=== PATIENT | male | born 1950 | race Caucasian/White ===

== ENCOUNTER 2017-08-08 05:47 | Day surgery (SDC) | payer MEDICARE, OTHER ==
[2017-08-07 09:37] LABS: BASOPHILS # (AUTO) 0.1 X10'3 (0-0.2); EOSINOPHILS # (AUTO) 0.5 X10'3 (0-0.9); EOSINOPHILS % (AUTO) 6.2 % (0-6); HEMOGLOBIN 16.1 g/dl (14.0-17.9); LYMPHOCYTES # (AUTO) 2.5 X10'3 (1.1-4.8); LYMPHOCYTES % (AUTO) 30.2 % (21-51); MEAN CORPUSCULAR HEMOGLOBIN 31.8 PG (27.0-31.0); MEAN CORPUSCULAR HGB CONC 34.2 % (33.0-36.5); MEAN CORPUSCULAR VOLUME 92.8 FL (78-98); MEAN PLATELET VOLUME 8.1 FL (7.4-10.4); MONOCYTES # (AUTO) 0.5 X10'3 (0-0.9); MONOCYTES % (AUTO) 5.8 % (2-12); NEUTROPHILS # (AUTO) 4.8 X10'3 (1.8-7.7); NEUTROPHILS % (AUTO) 56.8 % (42-75); PLATELET COUNT 257 X10'3 (140-440); RED BLOOD COUNT 5.06 X10'6 (4.70-6.10); WHITE BLOOD COUNT 8.4 X10'3 (4.5-11.0)
[2017-08-07 09:58] LABS: ALANINE AMINOTRANSFERASE 17 U/L (12-78); ALBUMIN 3.3 G/DL (3.4-5.0); ALBUMIN/GLOBULIN RATIO 0.8 (1.1-1.5); ALKALINE PHOSPHATASE 70 IU/L (46-116); ANION GAP 10 (8-16); ASPARTATE AMINO TRANSFERASE 15 U/L (10-37); BILIRUBIN,TOTAL 0.5 MG/DL (0.1-1.0); BLOOD UREA NITROGEN 14 MG/DL (7-18); BUN/CREATININE RATIO 13.6 (5.4-32.0); CALCIUM 8.4 MG/DL (8.5-10.1); CHLORIDE 107 MMOL/L (99-107); CHOL/HDL RATIO 3.4 (0.00-4.99); CHOLESTEROL 129 MG/DL (0-200); CREATININE 1.03 MG/DL (0.60-1.10); GLUCOSE 110 MG/DL (70-104); HDL CHOLESTEROL 38 MG/DL (35-60); LDL CHOLESTEROL 78 MG/DL (50-100); POTASSIUM 4.2 MMOL/L (3.5-5.1); SODIUM 140 MMOL/L (135-145); TOTAL CARBON DIOXIDE 23.3 MMOL/L (24-32); TOTAL PROTEIN 7.3 G/DL (6.4-8.2); TRIGLYCERIDES 97 MG/DL (20-135); eGFR 72 ML/MIN
[2017-08-08] VITALS (34 sets, daily range): BP systolic 109–177; BP diastolic 64–97
[~2017-08-08] VITALS: Ht 165.1 cm; Wt 102.9 kg
[2017-08-08] MEDS ORDERED: LORazepam 0.5 MG tablet PO PRN (06:00)
[2017-08-08] MEDS ORDERED: diphenhydrAMINE 25mg capsule PO PRN (06:00)
[2017-08-08] MEDS ORDERED: ATOR40TA PO (06:05)
[2017-08-08] MEDS ORDERED: METO50TA7 PO (06:05)
[2017-08-08] MEDS ORDERED: AMLO5TAB2 PO (06:05)
[2017-08-08] MEDS ORDERED: PRAS10TA6 PO (06:05)
[2017-08-08] MEDS ORDERED: LISI40TA4 PO (06:05)
[2017-08-08] MEDS ORDERED: ASPI81TA52 PO (06:05)
[2017-08-08] MEDS: normal saline 1000ml 1,000 ML IV SCH ×2 (06:41→10:59)
[2017-08-08] MEDS ORDERED: midazolam 2 mg/2 ml injection ONE (07:43)
[2017-08-08] MEDS ORDERED: nitroGLYCERIN-Tridil 50MG/D5W 250 ML IV ONE (07:43)
[2017-08-08] MEDS ORDERED: LIDOcaine 1% w/EPI 1:100,000 30ml vial (MDV) ONE (07:44)
[2017-08-08] MEDS ORDERED: fentaNYL/PF 50MCG/1 ML 2ML syringe ONE (07:44)
[2017-08-08] MEDS ORDERED: iohexol 350 MG/ML 50ML vial IV ONE ×2 (07:44→09:08)
[2017-08-08] MEDS ORDERED: iohexol 350MG/ML 100ml bottle IV ONE ×2 (07:44→08:20)
[2017-08-08] MEDS ORDERED: heparin 1,000unit/ml 10ml vial 10 ML ONE (07:44)
[2017-08-08] MEDS ORDERED: tirofiban 5mg in NS 100mL 100 ML IV ONE (09:12)
[2017-08-08] MEDS ORDERED: ticagrelor 90mg tablet ONE (09:13)
[2017-08-08] MEDS ORDERED: magnesium hydroxide 30ml (MOM) UD suspension PO PRN (10:05)
[2017-08-08] MEDS ORDERED: HYDROcodone/acetaminophen 10/325mg tab PO PRN ×2 (10:05)
[2017-08-08] MEDS ORDERED: OXAZEpam 15mg capsule PO PRN (10:05)
[2017-08-08] MEDS ORDERED: acetaminophen 325mg tablet PO PRN (10:05)
[2017-08-08] MEDS ORDERED: cyclobenzaprine 10mg tablet PO PRN (10:05)
[2017-08-08] MEDS ORDERED: proCHLORperazine 10 MG/2 ml inj IV PRN (10:05)
[2017-08-08] MEDS: tirofiban 5mg in NS 100mL 100 ML IV SCH ×3 (10:59→21:53)
[2017-08-08] MEDS ORDERED: LIDOcaine 1.5% w/epinephrine 1:200,000 5ml ampul ONE (14:15)
[2017-08-08] MEDS: ticagrelor 90mg tablet PO SCH (17:38)
[2017-08-08] MEDS: docusate sod 100mg capsule PO SCH (20:15)
[2017-08-09 03:00] VITALS: BP 122/63
[2017-08-09] MEDS: tirofiban 5mg in NS 100mL 100 ML IV SCH (03:43)
[2017-08-09 05:13] LABS: BASOPHILS % (AUTO) 0.3 % (0-1); EOSINOPHILS # (AUTO) 0.4 X10'3 (0-0.9); EOSINOPHILS % (AUTO) 3.6 % (0-6); HEMATOCRIT 43.6 % (42.0-52.0); HEMOGLOBIN 14.9 g/dl (14.0-17.9); LYMPHOCYTES # (AUTO) 2.1 X10'3 (1.1-4.8); LYMPHOCYTES % (AUTO) 21.3 % (21-51); MEAN CORPUSCULAR HEMOGLOBIN 31.7 PG (27.0-31.0); MEAN PLATELET VOLUME 8.1 FL (7.4-10.4); MONOCYTES # (AUTO) 0.6 X10'3 (0-0.9); MONOCYTES % (AUTO) 5.7 % (2-12); NEUTROPHILS # (AUTO) 6.8 X10'3 (1.8-7.7); NEUTROPHILS % (AUTO) 69.1 % (42-75); PLATELET COUNT 242 X10'3 (140-440); RED BLOOD COUNT 4.69 X10'6 (4.70-6.10); WHITE BLOOD COUNT 9.9 X10'3 (4.5-11.0)
[2017-08-09 05:22] LABS: ALBUMIN 2.7 G/DL (3.4-5.0); ANION GAP 11 (8-16); BLOOD UREA NITROGEN 13 MG/DL (7-18); CALCIUM 8.3 MG/DL (8.5-10.1); CHLORIDE 108 MMOL/L (99-107); GLUCOSE 111 MG/DL (70-104); POTASSIUM 3.7 MMOL/L (3.5-5.1); SODIUM 141 MMOL/L (135-145); TOTAL CARBON DIOXIDE 21.6 MMOL/L (24-32); eGFR 75 ML/MIN
[2017-08-09 05:30] VITALS: BP 146/87
[2017-08-09] MEDS ORDERED: TICA90TA PO (06:38)
[2017-08-09] MEDS: docusate sod 100mg capsule PO SCH (07:49)
[2017-08-09] MEDS: ticagrelor 90mg tablet PO SCH (07:49)
[2017-08-09] MEDS ORDERED: atorvastatin 20mg tablet PO SCH (08:00)
[2017-08-09] MEDS ORDERED: aspirin 81mg tablet.DR PO SCH (08:00)
[2017-08-09] MEDS ORDERED: lisinopril 20mg tablet PO SCH (08:00)
[2017-08-09] MEDS ORDERED: amLODIPine 5mg tablet PO SCH (08:00)
[2017-08-09] MEDS ORDERED: metoprolol succinate 25mg (24-HOUR) SR. Tablet PO SCH (08:00)
== END 2017-08-09 11:24 | disposition home or self-care (01) ==
LOC: SSTAY O 05:47 → PCU 3S 17:17 → SSTAY O 08-09 11:24
PROVIDERS: ATTEND Internal Medicine Cardiovascular Disease
DX: I25.118 Atherosclerotic heart disease of native coronary artery with other forms of angina pectoris (principal); I10 Essential (primary) hypertension; E78.5 Hyperlipidemia, unspecified; I25.2 Old myocardial infarction; K21.9 Gastro-esophageal reflux disease without esophagitis; Z95.5 Presence of coronary angioplasty implant and graft; Z86.74 Personal history of sudden cardiac arrest; Z87.891 Personal history of nicotine dependence; Z72.89 Other problems related to lifestyle; Z79.82 Long term (current) use of aspirin; Z79.899 Other long term (current) drug therapy; Z98.890 Other specified postprocedural states
CPT/HCPCS: 36415; 80048; 80053; 80061; 85025; 85347; 92920; 93005; 93458; 99152; 99153; A6257; A6449; C1725; C1760; C1769; J1644; J2250; J3010; J3246; J3490; J7030; Q0163; Q9967; A4620

== ENCOUNTER 2018-05-05 03:04 | Inpatient (IN) | payer MEDICARE, OTHER | END 2018-05-07 15:05 | disposition home or self-care (01) | LOC: ER 03:04 → ED HOLD 06:24 → ICU 2S 08:51 → PCU 3S 05-06 19:53 | PROC: 02703ZZ Dilation of Coronary Artery, One Artery, Percutaneous Approach (ICD-10-PCS; principal; ~2018-05-05) | PROC: 4A023N7 Measurement of Cardiac Sampling and Pressure, Left Heart, Percutaneous Approach (ICD-10-PCS; ~2018-05-05) | PROC: B215YZZ Fluoroscopy of Left Heart using Other Contrast (ICD-10-PCS; ~2018-05-05) | PROC: B211YZZ Fluoroscopy of Multiple Coronary Arteries using Other Contrast (ICD-10-PCS; ~2018-05-05) | PROC: B218YZZ Fluoroscopy of Left Internal Mammary Bypass Graft using Other Contrast (ICD-10-PCS; ~2018-05-05) | DX: I21.4 Non-ST elevation (NSTEMI) myocardial infarction (principal); I50.21 Acute systolic (congestive) heart failure; I47.2 Ventricular tachycardia; J06.9 Acute upper respiratory infection, unspecified; I25.10 Atherosclerotic heart disease of native coronary artery without angina pectoris ==

== ENCOUNTER 2019-07-09 07:23 | Emergency (ER) | payer MEDICARE, OTHER ==
[~2019-07-09] VITALS: Ht 167.6 cm; Wt 104.5 kg
[~2019-07-09 07:23] MED LIST: AMLO5TAB9 PO; ASPI81TA52 PO; ATOR40TA PO; LISI40TA4 PO; METO50TA7 PO; NITR0.4T51 SL; TICA90TA PO
[2019-07-09 08:52] VITALS: BP 148/77
== END 2019-07-09 08:54 | disposition home or self-care (01) ==
LOC: ER 07:23
DX: S61.012A Laceration without foreign body of left thumb without damage to nail, initial encounter (principal); I25.10 Atherosclerotic heart disease of native coronary artery without angina pectoris; I25.2 Old myocardial infarction; Z98.61 Coronary angioplasty status; Z79.82 Long term (current) use of aspirin; Z79.899 Other long term (current) drug therapy; W26.0XXA Contact with knife, initial encounter; Y93.89 Activity, other specified; Y92.89 Other specified places as the place of occurrence of the external cause; Y99.8 Other external cause status
CPT/HCPCS: 12001; 29130; 99282; 99283

== ENCOUNTER 2020-08-18 06:03 | Day surgery (SDC) | payer MEDICARE, OTHER ==
[2020-08-17 11:12] LABS: BASOPHILS # (AUTO) 0.1 X10'3 (0-0.2); BASOPHILS % (AUTO) 1.1 % (0-1); EOSINOPHILS # (AUTO) 0.3 X10'3 (0-0.9); EOSINOPHILS % (AUTO) 2.8 % (0-6); HEMATOCRIT 45.3 % (42.0-52.0); HEMOGLOBIN 15.3 g/dl (14.0-17.9); LYMPHOCYTES # (AUTO) 2.4 X10'3 (1.1-4.8); LYMPHOCYTES % (AUTO) 23.9 % (21-51); MEAN CORPUSCULAR HEMOGLOBIN 31.9 PG (27.0-31.0); MEAN CORPUSCULAR HGB CONC 33.7 g/dL (33.0-36.5); MEAN CORPUSCULAR VOLUME 94.5 FL (78-98); MEAN PLATELET VOLUME 7.8 FL (7.4-10.4); MONOCYTES # (AUTO) 0.6 X10'3 (0-0.9); MONOCYTES % (AUTO) 6.2 % (2-12); NEUTROPHILS # (AUTO) 6.7 X10'3 (1.8-7.7); PLATELET COUNT 251 X10'3 (140-440); RED CELL DISTRIBUTION WIDTH 13.5 % (11.5-14.5); WHITE BLOOD COUNT 10.1 X10'3 (4.5-11.0)
[2020-08-17 11:13] LABS: ALBUMIN 3.3 G/DL (3.4-5.0); ANION GAP 10 (8-16); BLOOD UREA NITROGEN 16 MG/DL (7-18); BUN/CREATININE RATIO 16.8 (5.4-32.0); CALCIUM 8.2 MG/DL (8.5-10.1); CHLORIDE 109 MMOL/L (99-107); CREATININE 0.95 MG/DL (0.60-1.10); GLUCOSE 103 MG/DL (70-104); POTASSIUM 4.1 MMOL/L (3.5-5.1); SODIUM 141 MMOL/L (135-145); TOTAL CARBON DIOXIDE 21.9 MMOL/L (24-32); eGFR 78 ML/MIN
[2020-08-18] VITALS (15 sets, daily range): BP systolic 129–162; BP diastolic 64–83
[~2020-08-18] VITALS: Ht 160 cm; Wt 108.5 kg
[~2020-08-18 06:03] MED LIST changes: +AMLO-315 PO; -AMLO5TAB9 PO; +LISI40TA13 PO; -LISI40TA4 PO
[2020-08-18] MEDS ORDERED: diphenhydrAMINE 25mg capsule PO PRN (06:20)
[2020-08-18] MEDS ORDERED: LORazepam 0.5 MG tablet PO PRN (06:20)
[2020-08-18] MEDS ORDERED: LIDOcaine/PRILOcaine 5gm cream TP ONE (06:20)
[2020-08-18] MEDS ORDERED: normal saline 1,000 ML IV SCH (06:20)
[2020-08-18] MEDS ORDERED: TICA60TA PO (06:27)
[2020-08-18] MEDS ORDERED: midazolam 1 mg/ML 2ml injection ONE (07:29)
[2020-08-18] MEDS ORDERED: verapamil 2.5 mg/ml inj IV ONE (07:29)
[2020-08-18] MEDS ORDERED: fentaNYL/PF 50MCG/1 ML 2ML syringe ONE (07:29)
[2020-08-18] MEDS ORDERED: LIDOcaine 1% (10mg/ml)w/preservative injection 20ml MDV ONE (07:29)
[2020-08-18] MEDS ORDERED: heparin 1,000unit/ml 10ml vial 10 ML ONE (07:30)
[2020-08-18] MEDS ORDERED: iohexol 350 MG/ML 50ML vial IV ONE (07:30)
[2020-08-18] MEDS ORDERED: iohexol 350MG/ML 100ml bottle IV ONE ×3 (07:30→09:40)
[2020-08-18] MEDS ORDERED: nitroGLYCERIN-Tridil 50MG/D5W 250 ML IV ONE (07:30)
[2020-08-18 08:41] LABS: ISTAT Hct ART 44 %PCV (42-52); ISTAT O2 SATURATION ARTERIAL 95 % (95-98); ISTAT SOURCE ART
[2020-08-18 08:50] LABS: ISTAT Hct MIX 44 %PCV (42-52); ISTAT O2 SATURATION MIX VENOUS 80 % (60-80); ISTAT SOURCE VEN
[2020-08-18] MEDS ORDERED: heparin 25,000 UNIT/250ml bag 250 ML IV ONE (09:31)
[2020-08-18] MEDS ORDERED: ticagrelor 90mg tablet ONE (09:52)
== END 2020-08-18 17:30 | disposition home or self-care (01) ==
LOC: SSTAY O 06:03
PROVIDERS: ATTEND Internal Medicine Cardiovascular Disease
DX: R94.39 Abnormal result of other cardiovascular function study (principal); T82.855A Stenosis of coronary artery stent, initial encounter; I25.10 Atherosclerotic heart disease of native coronary artery without angina pectoris; I10 Essential (primary) hypertension; E78.5 Hyperlipidemia, unspecified; Z72.89 Other problems related to lifestyle; Y83.8 Other surgical procedures as the cause of abnormal reaction of the patient, or of later complication, without mention of misadventure at the time of the procedure; Y92.89 Other specified places as the place of occurrence of the external cause
CPT/HCPCS: 36415; 76937; 80048; 82803; 85014; 85025; 85347; 85610; 92920; 92978; 93005; 93460; 93571; 99152; 99153; C1725; C1751; C1753; C1769; C1894; J1644; J2001; J2250; J3010; J7030; Q0163; Q9967; 93456; A4620; A4663; A5120; A6258; J3490

== ENCOUNTER 2022-03-13 06:44 | Day surgery (SDC) | payer MEDICARE, BC ==
[2022-03-10 12:14] LABS: BASOPHILS # (AUTO) 0.1 X10'3 (0-0.2); BASOPHILS % (AUTO) 1.5 % (0-1); EOSINOPHILS # (AUTO) 0.5 X10'3 (0-0.9); EOSINOPHILS % (AUTO) 4.9 % (0-6); HEMATOCRIT 47.9 % (42.0-52.0); HEMOGLOBIN 16.2 g/dl (14.0-17.9); LYMPHOCYTES # (AUTO) 3.1 X10'3 (1.1-4.8); LYMPHOCYTES % (AUTO) 33.3 % (21-51); MEAN CORPUSCULAR HEMOGLOBIN 32.1 PG (27.0-31.0); MEAN CORPUSCULAR HGB CONC 33.9 g/dL (33.0-36.5); MEAN CORPUSCULAR VOLUME 94.9 FL (78-98); MEAN PLATELET VOLUME 7.8 FL (7.4-10.4); MONOCYTES # (AUTO) 0.7 X10'3 (0-0.9); MONOCYTES % (AUTO) 7.7 % (2-12); NEUTROPHILS # (AUTO) 4.9 X10'3 (1.8-7.7); NEUTROPHILS % (AUTO) 52.6 % (42-75); PLATELET COUNT 249 X10'3 (140-440); RED BLOOD COUNT 5.05 X10'6 (4.70-6.10); RED CELL DISTRIBUTION WIDTH 13.4 % (11.5-14.5); WHITE BLOOD COUNT 9.4 X10'3 (4.5-11.0)
[2022-03-10 12:30] LABS: APTT 28 SECONDS (22-32)
[2022-03-10 13:03] LABS: ALBUMIN 3.7 G/DL (3.4-5.0); ANION GAP 6 (8-16); BLOOD UREA NITROGEN 21 MG/DL (7-18); BUN/CREATININE RATIO 21.4 (5.4-32.0); CALCIUM 9.2 MG/DL (8.5-10.1); CHLORIDE 107 MMOL/L (99-107); CREATININE 0.98 MG/DL (0.60-1.10); GLUCOSE 103 MG/DL (70-104); POTASSIUM 4.4 MMOL/L (3.5-5.1); SODIUM 139 MMOL/L (135-145); TOTAL CARBON DIOXIDE 25.8 MMOL/L (24-32); eGFR 75 ML/MIN
[~2022-03-13] VITALS: Ht 162.6 cm; Wt 109.5 kg
[2022-03-13] VITALS (13 sets, daily range): BP systolic 110–151; BP diastolic 65–99
[~2022-03-13 06:44] MED LIST changes: -NITR0.4T51 SL; +TICA60TA PO; -TICA90TA PO
[2022-03-13] MEDS ORDERED: normal saline 1,000 ML IV SCH (07:00)
[2022-03-13] MEDS ORDERED: LORazepam 0.5 MG tablet PO PRN (07:00)
[2022-03-13] MEDS ORDERED: diphenhydrAMINE 25mg capsule PO PRN (07:00)
[2022-03-13] MEDS ORDERED: ISOS30TA84 (07:08)
[2022-03-13] MEDS ORDERED: fentaNYL/PF 50MCG/1 ML 2ML syringe ONE (09:39)
[2022-03-13] MEDS ORDERED: nitroGLYCERIN-Tridil 50MG/D5W 250 ML IV ONE (09:39)
[2022-03-13] MEDS ORDERED: midazolam 1 mg/ML 2ml injection ONE ×2 (09:39→10:12)
[2022-03-13] MEDS ORDERED: verapamil 2.5 mg/ml inj IV ONE (09:39)
[2022-03-13] MEDS ORDERED: iohexol 350MG/ML 100ml bottle IV ONE ×2 (09:40→10:54)
[2022-03-13] MEDS ORDERED: LIDOcaine 1% (10mg/ml) 2ml vial ONE (09:40)
[2022-03-13] MEDS ORDERED: heparin 1,000unit/ml 10ml vial 10 ML ONE (09:40)
[2022-03-13] MEDS ORDERED: LIDOcaine 1% 30ml preserv. free vial ONE (09:50)
[2022-03-13] MEDS ORDERED: heparin 25,000 UNIT/250ml bag 250 ML IV ONE (10:12)
[2022-03-13] MEDS ORDERED: nitroGLYCERIN 0.4mg SUBLingual tab SL ONE (11:41)
[2022-03-13] MEDS ORDERED: ticagrelor 90mg tablet ONE (11:45)
[2022-03-13] MEDS ORDERED: normal saline 1000ml 1,000 ML IV SCH (12:20)
[2022-03-13] MEDS ORDERED: HYDROcodone/acetaminophen 5mg/325mg tablet PO PRN (12:20)
[2022-03-13] MEDS ORDERED: HYDROcodone/acetaminophen 10/325mg tab PO PRN (12:20)
[2022-03-13] MEDS ORDERED: ACETYLCYSTEINE 200 MG/1 ML 4 ML ORAL SOLUTION PO SCH (20:00)
[2022-03-14] MEDS ORDERED: ticagrelor 90mg tablet PO SCH (08:00)
== END 2022-03-13 19:13 | disposition home or self-care (01) ==
LOC: SSTAY O 06:44
PROVIDERS: ATTEND Internal Medicine Cardiovascular Disease
DX: I25.118 Atherosclerotic heart disease of native coronary artery with other forms of angina pectoris (principal); I10 Essential (primary) hypertension; I25.2 Old myocardial infarction; E78.5 Hyperlipidemia, unspecified; I47.20 Ventricular tachycardia, unspecified; G47.33 Obstructive sleep apnea (adult) (pediatric); E66.9 Obesity, unspecified; Z68.41 Body mass index [BMI] 40.0-44.9, adult; Z95.5 Presence of coronary angioplasty implant and graft; Z79.82 Long term (current) use of aspirin; Z79.899 Other long term (current) drug therapy; Z79.01 Long term (current) use of anticoagulants
CPT/HCPCS: 36415; 76937; 80048; 85025; 85347; 85610; 85730; 92920; 93005; 93458; 99152; 99153; C1725; C1751; C1760; C1769; C1894; J1644; J2250; J3010; J3490; J7030; Q0163; Q9967; A6258; A6449; C1761

== ENCOUNTER 2024-04-22 15:34 | Outpatient (CLI) | payer MEDICARE, OTHER ==
[~2024-04-22 15:34] MED LIST changes: +AMI200T PO; -AMLO-315 PO; +APIX5TAB3 PO; +FURO-150 PO; -LISI40TA13 PO; +LISI5TAB22 PO; -METO50TA7 PO; +PANT40TA54 PO; -TICA60TA PO
== END 2024-04-22 23:59 | disposition home or self-care (01) ==
LOC: RAD 15:34
PROVIDERS: ATTEND Thoracic Surgery (Cardiothoracic Vascular Surgery)
DX: J18.9 Pneumonia, unspecified organism (principal); I48.92 Unspecified atrial flutter; J95.89 Other postprocedural complications and disorders of respiratory system, not elsewhere classified
CPT/HCPCS: 71046

== ENCOUNTER 2024-10-23 21:06 | Emergency (ER) | payer MEDICARE, OTHER ==
[~2024-10-23] VITALS: Ht 165.1 cm; Wt 110.0 kg
[~2024-10-23 21:06] MED LIST changes: -AMI200T PO; +AMIO200T76 PO; +WARF1TAB83; +WARF3TAB56
[2024-10-23 21:20] VITALS: BP 170/90; PULSE 74; RESP 20; TEMP 98.6; O2SAT 95
--- NOTE | 2024-10-23 21:37 | ELECTROCARDIOGRAPH REPORT ---
[facility] Test Date: 2024-10-23 Test Time: 21:35:59 Pat Name: GARRETT SORIA Department: [facility]-ER Patient ID: [facility]-[id number] Room: Gender: M Agricultural Equipment Salesperson: : [id number] Requested By: KEVIN PENNINGTON Order Number: [id number] Reading MD: Dr. Brian Schneider Measurements Intervals [place] Rate: 63 P: 21 MA: 196 QRS: -35 QRSD: 84 T: 185 QT: 388 QTc: 398 Interpretive Statements Sinus rhythm Left axis deviation Probable anterior infarct, age indeterminate Electronically Signed On 10-29-2024 18:49:[address] Brian Schneider Please click the below link to view image of tracing.
[2024-10-23 21:50] LABS: MEAN PLATELET VOLUME 7.8 FL (7.4-10.4); RED CELL DISTRIBUTION WIDTH 16.6 % (11.5-14.5)
[2024-10-23 22:02] LABS: CREATININE 0.92 MG/DL (0.60-1.10); TOTAL CARBON DIOXIDE 23.0 MMOL/L (24-32); eCRCL 61 ML/MIN; eGFR 80 ML/MIN
== END 2024-10-24 00:29 | disposition left against medical advice (07) ==
LOC: ER 21:06
DX: R53.1 Weakness (principal); R06.02 Shortness of breath; Z53.21 Procedure and treatment not carried out due to patient leaving prior to being seen by health care provider
CPT/HCPCS: 36415; 80053; 84484; 85025; 93005